=== PATIENT | male | born 1955 | race Caucasian/White ===

== ENCOUNTER 2019-04-08 11:34 | Observation (INO) | payer BC, OTHER ==
[2019-04-08 13:29] LABS: Hemoglobin 15.2 g/dL (14.0-18.0); Mean Corpuscular HGB CONC 34.7 g/dL (32.0-36.0); Mean Corpuscular Hemoglobin 31.8 pg (27.0-31.0); Mean Corpuscular Volume 91.6 fL (78.0-98.0); Platelet Count 217 thou/uL (130-400); RBC Distribution Width 11.9 % (11.5-14.5); Red Blood Cell (RBC) Count 4.79 mill/uL (4.70-6.10)
[2019-04-08 13:30] LABS: Bilirubin Negative (Negative); Blood, Urine Negative (Negative); Clarity CLEAR (Clear); Glucose, Urine (Dipstick) Negative (Negative); Leukocyte Negative (Negative); Nitrite Negative (Negative); Protein, Urine (Dipstick) Negative (Neg-Trace); Specific Gravity, Urine 1.003 (1.002-1.036); Urobilinogen 0.2 mg/dL (0.2-1.0)
[2019-04-08 13:47] LABS: ALT (SGPT) 31 U/L (8-55); AST (SGOT) 22 U/L (5-34); Albumin 4.7 g/dL (3.4-4.8); Alkaline Phosphatase 71 U/L (40-150); Anion Gap 15 mmol/L (10-20); BUN (Urea Nitrogen) 14 mg/dL (8.4-25.7); Bilirubin, Total 0.7 mg/dL (0.2-1.2); Calc. Creatinine Clearance 0 mL/min (70-130); Calcium 9.5 mg/dL (7.8-10.44); Carbon Dioxide 22 mmol/L (23-31); Chloride 104 mmol/L (98-107); Estimated GFR-MDRD 88; Globulin 2.6 g/dL (2.4-3.5); Glucose 102 mg/dL (80-115); Lipase 22 U/L (8-78); Potassium 3.8 mmol/L (3.5-5.1); Protein, Total 7.3 g/dL (5.8-8.1); Sodium 137 mmol/L (136-145)
[2019-04-08 14:00] LABS: Band 3 % (5-11); Eosinophils 1 % (0-10); Lymphocytes 24 % (21-51); MDiff Complete? YES; Monocytes 3 % (0-10); Neutrophil 69 % (42-75); RBC Morphology Normal
--- NOTE | 2019-04-08 14:53 | RAD ---
RADIOGRAPH CHEST 1 VIEW: DATE: 04/08/2019 HISTORY: 63-year-old male with hypertension and chest pain FINDINGS: The thoracic aorta is tortuous and ectatic. There is no evidence of airspace density, pulmonary edema , or pneumothorax. The lateral costophrenic angles are not effaced. No cardiomegaly. IMPRESSION: 1) No acute pulmonary findings. 2) ectasia of thoracic aorta.
[2019-04-08] MEDS ORDERED: Aspirin 325 MG TAB ONE (15:48)
[2019-04-08] MEDS ORDERED: cloNIDine 0.1 MG TAB PO PRN (16:33)
[2019-04-08] MEDS ORDERED: Acetaminophen 325 MG TAB PO PRN (16:33)
[2019-04-08] MEDS ORDERED: Senokot S 8.6-50 MG TAB PO PRN (16:33)
[2019-04-08] MEDS ORDERED: hydrALAZINE 20 MG/ML VIAL SLOW IVP PRN (16:33)
[2019-04-08] MEDS ORDERED: Ondansetron PF 4 MG/2 ML Vial IVP PRN ×2 (16:33)
[2019-04-08] MEDS ORDERED: Nitroglycerin 0.4 MG TAB (25 Tab Bottle) SL PRN (16:33)
[2019-04-08] MEDS ORDERED: Benzonatate 100 MG CAP PO PRN (16:33)
[2019-04-08] MEDS ORDERED: Nitroglycerin 0.4 MG TAB (25 Tab Bottle) PO PRN (16:33)
[2019-04-08] MEDS ORDERED: Bisacodyl 5 MG TAB PO PRN (16:33)
--- NOTE | 2019-04-08 18:27 | HP ---
PRIMARY CARE PHYSICIAN: Dr. Lane at [facility] in [place]. CHIEF COMPLAINT: Chest pain and pressure. HISTORY OF PRESENTING ILLNESS: Mr. Townsend is a very pleasant 63-year-old male with past medical history of dyslipidemia, who presented to the emergency room with above-mentioned complaint. History is mainly obtained by the patient himself, and electronic medical records have been reviewed. Case has been discussed with admitting ER physician, Dr. Degroot. Mr. Townsend reports that he was working at his desk today in the office when he had sudden onset of very sharp stabbing and pulsating chest pain. It was located right under the sternum in the center and would go in kind of a minto around his left chest up until his axilla. He describes the pain as at least 8/10 in intensity. No radiation. It was associated with dizziness, but not associated with any shortness of breath, palpitation, paresthesias of the arm or jaw. No jaw claudication. His only symptom has been having pain in his left thigh anteriorly in a patch like distribution, which comes and goes for the last few months. Otherwise, he has been in fairly good health. He has no recent illnesses. No fever, chills, cough, rhinorrhea, or shortness of breath. He has had similar symptoms in the past and reports getting a stress test done at least twice in the past. He remembers a treadmill stress test and a chemical stress test and was told that both of them were unremarkable. He remember feeling "my heart is going to burst out of my chest" during his chemical stress test. He does not remember when was it done however. Upon presentation to the emergency room, he was hemodynamically stable and his symptoms have resolved. His blood pressure was 142/87 and saturation 99% on room air. His initial workup including 12-lead EKG, cardiac enzyme, and blood work was essentially unremarkable. He is now being admitted for ACS rule out. He has a family history of his father having a heart attack, leading to his at age 48. He was, however, heavy smoker and drinker. Two of his uncles on his maternal side also have had heart attack in the 60s, but they were also heavy drinkers. The patient has history of tobacco abuse, but he quit about 30 to 40 years ago. He is nondrinker. PAST MEDICAL HISTORY: Dyslipidemia. PAST SURGICAL HISTORY: None, confirmed with the patient. PSYCHIATRIC HISTORY: No anxiety. No depression. He denies any kind of physical or emotional stresses. SOCIAL HISTORY: He is and lives at home with his family. He works in the [employer] and [employer] and it involves a lot of walking as well. No history of drug, tobacco, or alcohol abuse. FAMILY HISTORY: As dictated above in the HPI. Family history of coronary artery disease in maternal uncles and his father. No history of stroke or cancer. ALLERGIES: PENICILLIN. HOME MEDICATIONS: Atorvastatin 20 mg in the morning. REVIEW OF SYSTEMS: A 14-point review of system is done, it is negative except for those mentioned in the history and physical. LABORATORY EXAMINATION: CBC is unremarkable. Serum chemistries unremarkable. Troponin less than 0.010 x2. LFTs within normal limit. Urinalysis unremarkable. Chest x-ray by my review shows no evidence of pleural effusion, edema, or cardiomegaly. He does have ectasia of the thoracic aorta. His 12-lead EKG by my review shows no acute ST or T-wave changes. Sinus rhythm is noticed. PHYSICAL EXAMINATION: VITAL SIGNS: Upon presentation; blood pressure 142/87, pulse of 63, respirations 17, temperature 98.4, and saturating 99% on room air. GENERAL: In no acute distress. Awake, alert, and oriented x3. Very pleasant. HEENT: Mucous membrane is moist and pink. No oropharyngeal exudate or erythema. Head is normocephalic and atraumatic. Pupils are equal and reactive to light and accommodation. NECK: Supple without any lymphadenopathy, JVD, or bruit. CHEST: Clear to auscultation without any wheezing, rales, or rhonchi. Rate and rhythm are regular without any murmurs, rubs, or gallops. ABDOMEN: Soft, nontender, nondistended with positive bowel sounds. EXTREMITIES: Free of any cyanosis, clubbing, or edema. NEUROLOGIC: Nonfocal. SKIN: Free of any rashes or bruises. It feels warm and dry to touch. PSYCHIATRIC: Normal affect. IMPRESSION AND PLAN: 1. Chest pain. The patient has multiple risk factors in the form of family history and dyslipidemia. He also presents with hypertension. He will be admitted under observation status on telemetry unit to rule out acute coronary syndrome. We will give him full dose aspirin and continue Lipitor for now and check lipid panel. We will also perform a nuclear medicine stress test in the morning and continue to trend serial cardiac enzymes. Heart healthy diet will be instituted as well. Further management will depend upon his workup. He otherwise leads a fairly active lifestyle. Other possibilities include gastroesophageal reflux disease. We will put him on Pepcid p.o. b.i.d. Currently, he is asymptomatic and hemodynamically stable. 2. Dyslipidemia. Continue atorvastatin 20 mg for now. 3. Family history significant for heart disease. Check lipid profile. 4. Deep venous thrombosis and gastrointestinal prophylaxis. DISPOSITION: Mr. Townsend is currently being admitted to the hospital for ACS rule out as he presented with chest pain. Management will depend upon his clinical course. Job ID: [id number]
[2019-04-08 19:38] LABS: Troponin I Less than 0.010 ng/mL (< 0.028)
[2019-04-08 20:05] VITALS: BMI 29.2
[2019-04-08] MEDS ORDERED: Atorvastatin Calcium 20 MG TAB PO SCH (21:00)
[2019-04-08] MEDS: Famotidine 20 MG TAB PO SCH (21:36)
[2019-04-08 22:13] LABS: Troponin I Less than 0.010 ng/mL (< 0.028)
[2019-04-09 05:27] LABS: #Eosinphils 0.4 thou/uL (0.0-0.7); #Lymphocytes 1.7 thou/uL (1.20-3.40); #Monocytes 0.8 thou/uL (0.11-0.59); #Neutrophils 4.6 thou/uL (1.40-6.50); %Basophils 0.4 % (0.0-1.0); %Eosinophils 4.9 % (0.0-10.0); %Lymphocytes 22.9 % (21.0-51.0); %Neutrophils 61.9 % (42.0-75.0); Hemoglobin 14.8 g/dL (14.0-18.0); Mean Corpuscular HGB CONC 34.7 g/dL (32.0-36.0); Mean Corpuscular Hemoglobin 32.3 pg (27.0-31.0); Mean Corpuscular Volume 93.1 fL (78.0-98.0); Mean Platelet Volume 6.3 fL (7.4-10.4); Platelet Count 248 thou/uL (130-400); RBC Distribution Width 12.1 % (11.5-14.5); Red Blood Cell (RBC) Count 4.58 mill/uL (4.70-6.10); White Blood Cell (WBC) Count 7.5 thou/uL (4.8-10.8)
[2019-04-09 05:48] LABS: Anion Gap 15 mmol/L (10-20); BUN (Urea Nitrogen) 16 mg/dL (8.4-25.7); Calc. Creatinine Clearance 94 mL/min (70-130); Calcium 9.4 mg/dL (7.8-10.44); Carbon Dioxide 21 mmol/L (23-31); Cardiac Risk 5.9 (Less than 4.5); Chloride 105 mmol/L (98-107); Cholesterol 189 mg/dl (< 200 Desired); Estimated GFR-MDRD 80; Glucose 95 mg/dL (80-115); HDL Cholesterol 32 mg/dL (>60 Neg Risk); LDL Cholesterol, Calculated 114 mg/dL; Sodium 137 mmol/L (136-145); Triglycerides 215 mg/dL (Less than 150)
[2019-04-09] MEDS: Famotidine 20 MG TAB PO SCH (08:19)
[2019-04-09] MEDS ORDERED: Aspirin 325 mg Enteric Coated Tablet PO SCH (09:00)
[2019-04-09] MEDS ORDERED: Enoxaparin Sodium 40 MG/0.4 ML SYRINGE SC SCH (09:00)
[2019-04-09 11:53] VITALS: BP 148/76; TEMP 98.7
--- NOTE | 2019-04-09 12:34 | NM ---
NUCLEAR MEDICINE CARDIAC PERFUSION EXAMINATION WITH EJECTION FRACTION: HISTORY: A 63-year-old male with chest pain, dyslipidemia, and a family history of coronary artery disease. TECHNIQUE: A single-day nuclear medicine cardiac perfusion examination was performed. Rest images were obtained using 10 millicuries of technetium 99m sestamibi. Stress images were obtained using 30.7 millicurie s of technetium 99m sestamibi and adenosine. FINDINGS: Tomographic images show no fixed or reversible perfusion defects. Gated images show normal wall ruby on with an ejection fraction of 54%. EDV is 87 mm. LHR is 0.3. EDWARD is 1.2. IMPRESSION: No evidence of ischemia. POS: ESTUARDO
[2019-04-09] MEDS ORDERED: ADENOSINE 60 MG/20 ML VIAL ONE (13:09)
--- NOTE | 2019-04-10 01:53 | SS ---
DATE OF ADMISSION: 04/08/2019 DATE OF DISCHARGE: 04/09/2019 PRIMARY CARE PHYSICIAN: Dr. Lane at [facility] in [place]. CHIEF COMPLAINT: Chest pain and pressure. SUMMARY OF SHORT COURSE HOSPITAL STAY: Mr. Townsend is a very pleasant 63-year-old male, past medical history of dyslipidemia, who presented to the emergency room yesterday, complaining of chest pain and pressure. Mr. Townsend reports that he was working at his desk when he had a sudden onset of very sharp chest pain that was stabbing and pulsating, lasted about 10 minutes, described it as left-sided pain, had some dizziness, but did not have any shortness of breath, palpitations, or paresthesias. No jaw claudication. Reports that he works outside quite a bit. Does a lot of walking at his job. Does have a significant family history of cardiac disease, and therefore he was admitted to the observation unit for further risk stratification. Vital signs have remained stable. Troponin x4 were undetectable. Triglycerides 215, cholesterol 189, LDL is 114, HDL is 32, lipase 22. The patient underwent a stress test today with nuclear medicine which was negative. No evidence of any ischemia. He did have an ejection fraction of 54%. The patient remained pain free and the patient was discharged from the hospital with instructions to follow up with primary care. He was told of the EF of 54, and stated that he needed to follow up with Dr. Lane and then establish care with a flatwork finisher hand as needed for followup. He was instructed to continue and to follow up with primary care within the next week. DISCHARGE DIAGNOSES: 1. Atypical chest pain. 2. Hyperlipidemia. 3. High cholesterol. ALLERGIES: DOXYCYCLINE AND PENICILLINS. HOME MEDICATIONS: 1. Atorvastatin 20 mg p.o. at bedtime. 2. Chlorhexidine 15 mL p.o. b.i.d. 3. Prilosec 20 mg p.o. daily. 4. Garlic 1000 mg p.o. at bedtime. 5. Ginkgo biloba 60 mg p.o. at bedtime. 6. Multivitamin 1 capsule p.o. at bedtime. 7. Saw Rifton 50 mg p.o. at bedtime. DISPOSITION: Stable. Discharged to home. INSTRUCTIONS: The patient should follow up with Dr. Lane at [facility] within the next week. Should discuss stress test results and EF and refer to flatwork finisher hand as needed. Job ID: [id number]
--- NOTE | 2019-04-10 11:20 | EKG ---
Test Reason : CP Blood Pressure : / mmHG Vent. Rate : 073 BPM Atrial Rate : 073 BPM P-R Int : 138 ms QRS Dur : 092 ms QT Int : 382 ms P-R-T Axes : 029 -15 015 degrees QTc Int : 420 ms Normal sinus rhythm Normal ECG Confirmed by ROSALINA BISWAS DO ([id number]), editor publications CHELA SARAVIA ([id number]) on 04/10/2019 11:20:06 AM Referred By: Confirmed By:ROSALINA BISWAS DO
== END 2019-04-09 13:55 | disposition home or self-care (01) ==
LOC: ERS 11:34 → 2SW 16:38
PROVIDERS: ADMIT Internal Medicine; ATTEND Internal Medicine
DX: R07.2 Precordial pain (principal); E78.00 Pure hypercholesterolemia, unspecified; I10 Essential (primary) hypertension; Z87.891 Personal history of nicotine dependence; Z82.49 Family history of ischemic heart disease and other diseases of the circulatory system; Z88.0 Allergy status to penicillin; Z88.1 Allergy status to other antibiotic agents; Z79.899 Other long term (current) drug therapy
CPT/HCPCS: 36415; 36416; 71045; 78452; 80048; 80053; 80061; 81003; 83690; 84484; 85025; 93005; 93017; 94760; 96372; A9500; G0378; J0153; J1650